=== PATIENT | female | born 1970 | race Caucasian/White ===

== ENCOUNTER → 2016-10-20 | Outpatient (CLI) | payer SELFPAY ==
[~2016-10-20] MED LIST: CEPHALEXIN500 M1 PO; FERROUS SULFATE65 MG PO
[2016-10-20 17:12] LABS: MEAN CELL VOLUME 67 fl (80.0-100.0); MEAN CORPUSCULAR HGB CONC 29 g/dl (33.0-37.0); MEAN PLATELET VOLUME 9.4 fl (7.4-10.4); PLATELET COUNT 525 K/mm3 (130-400); RED BLOOD COUNT 3.61 M/mm3 (4.10-5.30); REDCELL DISTRIBUTION WIDTH-CV 18.2 % (11.5-14.5); RETIC % 1.5 % (0.5-3.52); WHITE BLOOD COUNT 9.8 K/mm3 (4.8-10.8)
[2016-10-20 17:45] LABS: TOTAL IRON BINDING CAPACITY 482 ug/dL (265-497)
[2016-10-20 17:59] LABS: ADD PATHOLOGY DIFF REVIEW NO; HEMATOCRIT 24.2 % (37.0-47.0); MEAN CORPUSCULAR HEMOGLOBIN 19 pg (27.0-31.0)
[2016-10-20 18:11] LABS: FERRITIN 3 ng/mL (6-137)
[2016-10-20 18:42] LABS: BAND 1 % (0-10); MICROCYTOSIS 2+; NEUTROPHILS 72 % (42.0-75.2); PLATELET ESTIMATE INCREASED (NORMAL); TOTAL CELLS COUNTED 100
[2016-10-20 18:43] LABS: HYPOCHROMIA 2+; STOMATOCYTE 1+
== END ==
LOC: ZLAB.FHCC 16:07
DX: Z02.89 Encounter for other administrative examinations (principal)

== ENCOUNTER → 2016-11-08 | Outpatient (CLI) | payer SELFPAY ==
[2016-11-08 16:17] LABS: MEAN CELL VOLUME 68 fl (80.0-100.0); MEAN CORPUSCULAR HGB CONC 29 g/dl (33.0-37.0); MEAN PLATELET VOLUME 9.8 fl (7.4-10.4); PLATELET COUNT 380 K/mm3 (130-400); RED BLOOD COUNT 3.87 M/mm3 (4.10-5.30); REDCELL DISTRIBUTION WIDTH-CV 21.1 % (11.5-14.5); WHITE BLOOD COUNT 9.9 K/mm3 (4.8-10.8)
[2016-11-08 16:19] LABS: HEMATOCRIT 26.3 % (37.0-47.0); HEMOGLOBIN 7.7 g/dl (12.5-16.0); MEAN CORPUSCULAR HEMOGLOBIN 20 pg (27.0-31.0)
== END ==
LOC: ZLAB.FHCC 15:18 → COL.LAB 15:18
PROVIDERS: Pediatrics Adolescent Medicine
DX: Z02.89 Encounter for other administrative examinations (principal)

== ENCOUNTER → 2016-11-11 | Outpatient (CLI) | payer SELFPAY ==
[2016-11-11 17:02] LABS: BASO # 0.1 (0.0-0.2); BASO % 0.8 % (0.0-2.0); EOS # 0.1 (0.0-0.7); EOS % 0.8 % (0-4.0); GRAN % 60.3 % (42.2-75.2); LYMPH # 2.4 (1.2-3.4); LYMPH % 28.1 % (20.0-51.0); MEAN CELL VOLUME 68 fl (80.0-100.0); MEAN CORPUSCULAR HGB CONC 29 g/dl (33.0-37.0); MEAN PLATELET VOLUME 9.4 fl (7.4-10.4); MONO # 0.8 (0.1-0.6); MONO % 9.8 % (1.7-9.3); PLATELET COUNT 386 K/mm3 (130-400); RED BLOOD COUNT 3.74 M/mm3 (4.10-5.30); REDCELL DISTRIBUTION WIDTH-CV 20.6 % (11.5-14.5); RETIC % 1.8 % (0.5-3.52); WHITE BLOOD COUNT 8.4 K/mm3 (4.8-10.8)
[2016-11-11 17:06] LABS: HEMATOCRIT 25.4 % (37.0-47.0); HEMOGLOBIN 7.3 g/dl (12.5-16.0); MEAN CORPUSCULAR HEMOGLOBIN 20 pg (27.0-31.0)
[2016-11-11 17:20] LABS: ADJUSTED CALCIUM 9.2 mg/dL (8.4-10.2); ALBUMIN 4.1 gm/dL (3.5-5.0); BILIRUBIN,TOTAL 0.5 mg/dL (0.0-1.0); CALCIUM 9.3 mg/dL (8.4-10.2); CREATININE, serum 0.63 mg/dL (0.52-1.25); POTASSIUM 3.6 mmol/L (3.4-5.0); TOTAL PROTEIN 7.7 gm/dL (6.4-8.2)
== END ==
LOC: COL.LAB 15:38 → ZLAB.FHCC 15:38
DX: Z02.89 Encounter for other administrative examinations (principal)